=== PATIENT | female | born 1995 | race American Indian/Alaskan Native ===

== ENCOUNTER 2017-05-14 11:40 | Emergency (ER) | payer SELFPAY ==
[2017-05-14 12:25] VITALS: BP 119/76
[2017-05-14 13:11] LABS: Basophils % (Auto) 0.2 % (0.0-1.8); Eosinophils % (Auto) 0.4 % (0.0-4.3); Hematocrit 39.3 % (30.3-42.9); Hemoglobin 12.6 gm/dl (10.1-14.3); Mean Corpuscular HGB Conc 32 % (30-34); Mean Corpuscular Hemoglobin 28 pg (28-32); Mean Corpuscular Volume 88 fl (79-97); Platelet Count 296 K/mm3 (140-440); Red Blood Count 4.45 M/mm3 (3.65-5.03); Red Cell Distribution Width 14.8 % (13.2-15.2); White Blood Count 9.1 K/mm3 (4.5-11.0)
[2017-05-14 13:29] LABS: Alanine Aminotransferase 9 units/L (7-56); Albumin 4.2 g/dL (3.9-5); Albumin/Globulin Ratio 1.2 %; Alkaline Phosphatase 85 units/L (35-129); Anion Gap 18 mmol/L; BUN/Creatinine Ratio 18.33; Blood Urea Nitrogen 11 mg/dL (7-17); Carbon Dioxide 22 mmol/L (22-30); Chloride 105.5 mmol/L (98-107); Glucose 94 mg/dL (65-100); Lipase 37 units/L (13-60); Sodium 141 mmol/L (137-145); Total Protein 7.6 g/dL (6.3-8.2)
[2017-05-14 13:34] LABS: Bacteria,Urine 1+ /HPF (Negative); Bilirubin,Urine NEG (Negative); Blood,Urine NEG (Negative); Ketones,Urine TR mg/dL (Negative); Leukocyte Esterase,Urine MOD (Negative); Mucus,Urine 3+ /HPF; Nitrite,Urine NEG (Negative)
== END 2017-05-14 19:50 | disposition left against medical advice (07) ==
LOC: ED 11:40
DX: R10.9 Unspecified abdominal pain (principal); R11.10 Vomiting, unspecified; Z53.21 Procedure and treatment not carried out due to patient leaving prior to being seen by health care provider
CPT/HCPCS: 36415; 80053; 81001; 81025; 83690; 84702; 85025

== ENCOUNTER 2019-12-25 15:57 | Outpatient (CLI) | payer MEDICAID ==
[2019-12-25 16:32] VITALS: BP 98/53
[2019-12-25] MEDS ORDERED: LACTATED RINGERS 1,000 ML IV ONE (16:44)
[2019-12-25 17:07] LABS: Bacteria,Urine 1+ /HPF (Negative); Bilirubin,Urine NEG (Negative); Blood,Urine NEG (Negative); Color,Urine Amber (Yellow); Mucus,Urine 2+ /HPF
[2019-12-25] MEDS ORDERED: cefTRIAXone/NS 1 GM/50 ML 1 GM/50 ML BAG IV ONE (18:00)
== END 2019-12-25 17:58 | disposition home or self-care (01) ==
LOC: TRG 15:57
PROVIDERS: ATTEND Obstetrics & Gynecology
DX: O26.893 Other specified pregnancy related conditions, third trimester (principal); R10.30 Lower abdominal pain, unspecified; O47.03 False labor before 37 completed weeks of gestation, third trimester; O10.913 Unspecified pre-existing hypertension complicating pregnancy, third trimester; Z3A.29 29 weeks gestation of pregnancy; Z87.891 Personal history of nicotine dependence
CPT/HCPCS: 59025; 81001; 87086; 96361; 96365; J0696; J7120; 96360